=== PATIENT | female | born 1995 | race Caucasian/White ===

== ENCOUNTER 2016-07-08 01:08 | Inpatient (IN) | payer OTHER ==
[~2016-07-08] VITALS: Ht 160 cm; Wt 84.7 kg
[~2016-07-08 01:08] MED LIST: IBUP800T23 PO; MOME17I EACH NARE
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
[2016-07-08 01:48] VITALS: BP 106/67; PULSE 90; RESP 17; TEMP 99.6; O2SAT 100
[2016-07-08 02:11] LABS: AUTOMATED NEUTROPHIL # 6.5 TH/MM3 (1.8-7.7); BASOPHIL # 0.1 TH/MM3 (0-0.2); BASOPHIL % 1.3 % (0.0-2.0); EOSINOPHIL % 0.1 % (0.0-4.0); HEMATOCRIT 40.4 % (35.0-46.0); LYMPH % 21.6 % (9.0-44.0); MEAN CELL VOLUME 85.6 FL (80.0-100.0); MEAN CORPUSCULAR HEMOGLOBIN 29.8 PG (27.0-34.0); MEAN CORPUSCULAR HGB CONC 34.9 % (32.0-36.0); MONO % 6.3 % (0.0-8.0); NEUT % 70.7 % (16.0-70.0); PLATELET COUNT 240 TH/MM3 (150-450); RED BLOOD COUNT 4.72 MIL/MM3 (4.00-5.30); RED CELL DISTRIBUTION WIDTH 13.5 % (11.6-17.2); WHITE BLOOD COUNT 9.2 TH/MM3 (4.0-11.0)
[2016-07-08 02:13] LABS: HEMO FLAGS AUTO DIFF
[2016-07-08 02:32] LABS: ANION GAP 8 MEQ/L (5-15); BICARBONATE 28.7 MEQ/L (21.0-32.0); BLOOD UREA NITROGEN 7 MG/DL (7-18); CHLORIDE 104 MEQ/L (98-107); GLOMERULAR FILTRATION RATE 68 ML/MIN (>89); POTASSIUM 3.6 MEQ/L (3.5-5.1); SODIUM (NA) 141 MEQ/L (136-145)
[2016-07-08 02:41] LABS: AMPHETAMINE, URINE NEG (NEG); BARBITURATES, URINE NEG (NEG); COCAINE, URINE NEG (NEG)
[2016-07-08 02:54] LABS: SCAN/DIFF AUTO DIFF CONFIRMED
--- NOTE | 2016-07-08 11:40 | PD ---
History of Present Illness Chief Complaint: Psychiatric Symptoms Time Seen by Provider: 11:00 Travel History International Travel<30 Days: No Contact w/Intl Traveler<30days: No Known affected area: No Legal Status Legal Status: Gallardo Act Gallardo Act Signed By: Hemalatha Mckeon History of Present Illness: History of Present Illness HPI 20 year-old female with history of adjustment disorder as well as mood disorder who presents to the emergency department under Gallardo ac initiated by ARTUR. The BA report that the patient was approached by a merchant police who saw her walk into a vacant lot and she reported that she wanted to kill herself. She reported to the ED provider that she was walking by the [employer] tracks contemplating lying down in front of a train, however a train never came so she contemplated jumping off the bridge. Patient tells me that she has been feeling increasingly depressed with low energy, low motivation, episodes of crying with sadness, increase feelings of guilt as well as suicidal ideation. " I have been suicidal for many years but have never felt so close to actually doing it ". My plan is to do whatever it is that would lead me to ". She does has a reported history of depression but has been off her medication since 2016 when she stopped going to [facility] and past medications include Zoloft, Lexapro as well as Trazodone which she feels did not help her" EMR is reviewed. She has one previous admission to [facility] at age 15 years for suicidal ideation w self inflicted superficial lacerations. She denies any substance use and current toxicology is negative. Patient is alert, oriented female who is dressed in hospital gown with appropriate hygiene. She has healed scars in upper arms from self inflicted lacerations. She also has some superficial; scars on her neck as well. Her affect is restricted, poor eye contact , low tone of speech. She denies any hallucinatory process. No joan. Mood is depressed with reported anhedonia and low motivation. denies hallucinations Patient is not paranoid although she is suspicious and guarded and shares that she quit her job in June because she believes she was being stalked by a stranger. Her sleeping is altered as she sleeps during the day because she finds it easier for her to do so. At the time of this evaluation she is unable to contract for safety and expresses that she wants to once again receive treatment for her psychiatric symptoms. PFSH Past Medical History ADHD: No Asthma: Yes Depression: Yes Cancer: No Cardiovascular Problems: No Diabetes: Yes (PT IS UNSURE) Patient Takes Glucophage: No Diminished Hearing: No Gastrointestinal Disorders: Yes (Constipation) Psychiatric: No Immunizations Current: Yes Migraines: No Seizures: No Thyroid Disease: No Ulcer: No PNEUMOCCOCAL Vaccine (Year): 2010 ?: Not LMP: 06/2016 : 0 Past Surgical History Surgical History: No Previous Surgery Other Surgery: No Psychiatric History Psychiatric History Hx Psychiatric Treatment: HX: [facility], [facility]. Last seen in [facility] in 2015. History of Inpatient Treatment: Yes ([facility] when she was 15 years old. ) Guns or firearms in home: No Social History Single female. Living with friends. Recently quit her job. Has no contact with her mother with other family members. Hx Alcohol Use: Yes (OCC) Hx Tobacco Use: No Hx Substance Use: No (PT DENIES) Hx of Substance Use Treatment: No Family Psychiatric History Mother with history of depression. Allergies-Medications (Allergen,Severity, Reaction): Coded Allergies: Cat Dander (Verified Allergy, Severe, 07/08/16) Dust (Verified Allergy, Severe, 07/08/16) Ibuprofen (Verified Allergy, Severe, Shortness of Breath, 07/08/16) Soybean (Verified Allergy, Severe, 07/08/16) Uncoded Allergies: fresh fruit (Adverse Reaction, Severe, 01/22/11) Reported Meds & Prescriptions Reported Meds & Active Scripts Active No Active Prescriptions or Reported Medications Review of Systems Except as stated in HPI: all other systems reviewed are Neg Psychiatric: COMPLAINS OF: Depression, Suicidal Ideation Exam Alert: Yes [place]: Person (ox4) Mood: Depressed Affect: Restricted Speech: Clear, Logical Eye Contact: Other (decreased) Memory Intact: Comment (not impaired) Hallucinations: Other (negative) Delusions: No Delusion Type: Other (suspicious) Suicidal: Plan (to lay in train tracks or jump from a building), Ideation Homicidal: Ideation (deneis any) Insight/Judgement fair. not impaired MDM Medical Decision Making Medical Record Reviewed: Yes Assessment/Plan 20 year old female under a BA for suicidal ideation. She has a history of treatment with various antidepressants as well as one previous admission to psychiatry at age 15 years. At present she stopped her psychiatric treatment in 2016 and is reporting increase in symptoms of depression as well as increase in suicidal ideation. At this time she meets criteria for inpatient psychiatric treatment in order to maintain safety, initiate medication and decrease current symptomatology. Orders Complete Blood Count With Diff (07/08/16 01:39) Basic Metabolic Panel (Bmp) (07/08/16 01:39) Ed Urine Pregnancytest Poc (07/08/16 01:39) Psych Screen (07/08/16 01:39) Drug Screen, Random Urine (07/08/16 01:39) Alcohol (Ethanol) (07/08/16 01:39) Diet Regular Basic (07/08/16 Breakfast) Results Vital Signs Date Time Temp Pulse Resp B/P Pulse Ox O2 Delivery O2 Flow Rate FiO2 07/08/16 01:48 99.6 90 17 106/67 100 Laboratory Tests Test 07/08/16 07/08/16 01:56 02:00 White Blood Count 9.2 Red Blood Count 4.72 Hemoglobin 14.1 Hematocrit 40.4 Mean Corpuscular Volume 85.6 Mean Corpuscular Hemoglobin 29.8 Mean Corpuscular Hemoglobin 34.9 Concent Red Cell Distribution Width 13.5 Platelet Count 240 Mean Platelet Volume 7.4 Neutrophils (%) (Auto) 70.7 Lymphocytes (%) (Auto) 21.6 Monocytes (%) (Auto) 6.3 Eosinophils (%) (Auto) 0.1 Basophils (%) (Auto) 1.3 Neutrophils # (Auto) 6.5 Lymphocytes # (Auto) 2.0 Monocytes # (Auto) 0.6 Eosinophils # (Auto) 0.0 Basophils # (Auto) 0.1 CBC Comment AUTO DIFF Differential Comment AUTO DIFF CONFIRMED Sodium Level 141 Potassium Level 3.6 Chloride Level 104 Carbon Dioxide Level 28.7 Anion Gap 8 Blood Urea Nitrogen 7 Creatinine 1.04 Estimat Glomerular Filtration 68 Rate Random Glucose 100 Calcium Level 9.4 Ethyl Alcohol Level LESS THAN 3 Urine Opiates Screen NEG Urine Barbiturates Screen NEG Urine Amphetamines Screen NEG Urine Benzodiazepines Screen NEG Urine Cocaine Screen NEG Urine Cannabinoids Screen NEG Diagnosis Primary Impression: Suicidal thoughts Additional Impressions: Depression Adjustment disorder Admitting Information Admitting Physician Requests: Admit (Dr. Ivory) Prescriptions No Active Prescriptions or Reported Meds Condition: Stable Problem Qualifiers Additional Impressions: Depression Qualified Code: F32.9 - Depression, unspecified depression type Adjustment disorder Qualified Code: F43.21 - Adjustment disorder with depressed mood Shaista Morales July 08, 2016 11:40
[2016-07-08 12:30] VITALS: BP 113/56; PULSE 68; RESP 16; TEMP 98.4; O2SAT 98
[2016-07-08] MEDS ORDERED: MAGNESIUM HYDROXIDE SUSP 30 ML CUP PO PRN (14:30)
[2016-07-08] MEDS ORDERED: ALUMINUM/MAGNESIUM/SIMETH 30 ML CUP PO PRN (14:30)
[2016-07-08] MEDS ORDERED: ACETAMINOPHEN 325 MG TAB PO PRN (14:30)
[2016-07-08 15:51] VITALS: BP 124/78; PULSE 70; RESP 16; TEMP 97.7; O2SAT 98
[2016-07-08 16:36] VITALS: BP 124/78
[2016-07-08 16:45] VITALS: BP 109/65; PULSE 61; RESP 16; TEMP 97.7; O2SAT 99
[2016-07-09 05:25] VITALS: BP 101/58; PULSE 60; RESP 16; TEMP 98; O2SAT 98
[2016-07-09 09:46] LABS: ANION GAP 9 MEQ/L (5-15); BICARBONATE 26.2 MEQ/L (21.0-32.0); BLOOD UREA NITROGEN 12 MG/DL (7-18); CHLORIDE 105 MEQ/L (98-107); GLOMERULAR FILTRATION RATE 94 ML/MIN (>89); HDL CHOLESTEROL 53.6 MG/DL (40.0-60.0); LDL CHOLESTEROL 90 MG/DL (0-99); SODIUM (NA) 140 MEQ/L (136-145)
[2016-07-09] MEDS ORDERED: PNEUMOCOCCAL POLYVALENT INJ 25 MCG/0.5 ML SYR IM ONE (10:00)
[2016-07-09 13:22] LABS: HEMOGLOBIN A1a 1.1 %; HEMOGLOBIN A1b 0.8 %; HEMOGLOBIN Ao 85.4 %; HEMOGLOBIN F 1.4 %; HEMOGLOBIN LA1C 1.8 %; HEMOGLOBIN P3 3.4 %
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
[2016-07-09] MEDS ORDERED: LORazepam 0.5 MG TAB PO PRN (15:00)
[2016-07-09] MEDS ORDERED: diphenhydrAMINE HCL 50 MG CAP PO PRN (15:00)
[2016-07-09] MEDS ORDERED: LORazepam 2 MG/ML VIAL IM PRN (15:00)
[2016-07-09 16:47] LABS: FREE T4 1.38 NG/DL (0.76-1.46)
[2016-07-09 17:55] VITALS: BP 115/62; PULSE 62; RESP 18; TEMP 98.2; O2SAT 100
[2016-07-10 05:43] VITALS: BP 102/55; PULSE 57; RESP 16; TEMP 97; O2SAT 98
[2016-07-10] MEDS: VENLAFAXINE HCL XR 37.5 MG CAP PO SCH (10:16)
--- NOTE | 2016-07-10 13:44 | HHI.PYPN ---
Subjective Remarks Patient was seen and case discussed with nursing. Patient is very shy and anxious for the interview. Spends a lot of time in her room per nursing. Patient was hoping for more counseling during her stay here and I will pass this along to she can get involved with the group therapy. Mood remains depressed but she is not hopeless or helpless. Denies suicidal ideation intent or plan. However, she says she does not feel safe outside the hospital Objective Alert: Yes [place]: Person (ox4), Place Mood: Anxious, Depressed Affect: Restricted Memory Intact: Comment (not impaired) Hallucinations: Other (negative) Delusions: No Delusion Type: Other (remains suspicious) Suicidal: Plan (no plan today but does not feel safe outside the hospital), Ideation Homicidal: Ideation (deneis any) Insight/Judgment Fair Vitals/IOs Vital Signs Date Time Temp Pulse Resp B/P Pulse Ox O2 Delivery O2 Flow Rate FiO2 07/10/16 05:43 97.0 57 16 102/55 98 07/08/16 12:30 Room Air Assessment & Plan Problem List: (1) Major depressive disorder ICD Code: F32.9 Assessment & Plan Continue current treatment plan Justification for Cont. Inpt. Patient will decompensate in a less restrictive setting Request HC Surrog/Guard Advoc?: No Problem Qualifiers (1) Major depressive disorder: Qualified Code: F33.2 - Severe episode of recurrent major depressive disorder, without psychotic features Vasyl Haley DO July 10, 2016 13:44
[2016-07-10 21:30] VITALS: BP 127/74; PULSE 67; RESP 17; TEMP 98.1; O2SAT 98
[2016-07-11 06:01] VITALS: BP 85/61; PULSE 70; RESP 15; TEMP 96.5; O2SAT 95
[2016-07-11] MEDS: VENLAFAXINE HCL XR 37.5 MG CAP PO SCH (08:51)
--- NOTE | 2016-07-11 16:38 | HHI.PYPN ---
Subjective Remarks Started on Effexor. Tolerates medication well. Remains depressed. Review of Systems Except as stated in HPI: all other systems reviewed are Neg Objective Alert: Yes [place]: Person (ox4), Place Mood: Anxious, Depressed Affect: Restricted Memory Intact: Comment (not impaired) Hallucinations: Other (negative) Delusions: No Delusion Type: Other (remains suspicious) Suicidal: Plan (no plan today but does not feel safe outside the hospital), Ideation Homicidal: Ideation (deneis any) Insight/Judgment Impaired Vitals/IOs Vital Signs Date Time Temp Pulse Resp B/P Pulse Ox O2 Delivery O2 Flow Rate FiO2 07/11/16 06:01 96.5 70 15 85/61 95 07/08/16 12:30 Room Air Assessment & Plan Problem List: (1) Major depressive disorder ICD Code: F32.9 Assessment & Plan Estimated LOS: 3 days continue to titrate Effexor as tolerated. Justification for Cont. Inpt. Likely to decompensate at lower level of care. Request HC Surrog/Guard Advoc?: No Problem Qualifiers (1) Major depressive disorder: Qualified Code: F33.2 - Severe episode of recurrent major depressive disorder, without psychotic features Jered Moreno MD July 11, 2016 16:38
[2016-07-11 20:00] VITALS: BP 111/60; PULSE 67; RESP 18; TEMP 98; O2SAT 100
[2016-07-12 05:34] VITALS: BP 98/59; PULSE 60; RESP 16; TEMP 97.9
[2016-07-12] MEDS: VENLAFAXINE HCL XR 37.5 MG CAP PO SCH (08:39)
--- NOTE | 2016-07-12 10:46 | HHI.PYPN ---
Subjective Remarks Continues to appear anxious and depressed. Discussed possible medication changes but patient does not want this physician to change medicines at this time. Patient to participate in individual and group therapies. Review of Systems Except as stated in HPI: all other systems reviewed are Neg Objective Alert: Yes [place]: Person (ox4), Place Mood: Anxious, Depressed Affect: Restricted Memory Intact: Comment (not impaired) Hallucinations: Other (negative) Delusions: No Delusion Type: Other (remains suspicious) Suicidal: Plan (no plan today but does not feel safe outside the hospital), Ideation Homicidal: Ideation (deneis any) Insight/Judgment Remains impaired. Vitals/IOs Vital Signs Date Time Temp Pulse Resp B/P Pulse Ox O2 Delivery O2 Flow Rate FiO2 07/12/16 05:34 97.9 60 16 98/59 07/11/16 20:00 100 07/08/16 12:30 Room Air Assessment & Plan Problem List: (1) Major depressive disorder ICD Code: F32.9 Assessment & Plan Estimated LOS: 3 days will continue to monitor for improvement based on medication and therapies. Justification for Cont. Inpt. Medication needs more time to be effective. Request HC Surrog/Guard Advoc?: No Problem Qualifiers (1) Major depressive disorder: Qualified Code: F33.2 - Severe episode of recurrent major depressive disorder, without psychotic features Jered Moreno MD July 12, 2016 10:46
[2016-07-13 05:59] VITALS: BP 92/52; PULSE 62; RESP 16; TEMP 98.7
[2016-07-13] MEDS: VENLAFAXINE HCL XR 37.5 MG CAP PO SCH (09:02)
[2016-07-13 17:19] VITALS: BP 116/74; PULSE 65; RESP 16; TEMP 97.6; O2SAT 100
[2016-07-14 06:40] VITALS: BP 98/58; PULSE 55; RESP 16; TEMP 97.9
[2016-07-14] MEDS: buPROPion HCL 150 MG SUSTAINED RELEASE TAB PO SCH (08:25)
--- NOTE | 2016-07-14 13:58 | HHI.PYPN ---
Subjective Remarks Continues to request medications at an alarming rate. Does not appear to be as paranoid as she once was. Anticipate discharge shortly but will continue to adjust medicines and meantime. Review of Systems Except as stated in HPI: all other systems reviewed are Neg Objective Alert: Yes [place]: Person (ox4), Place Mood: Anxious, Depressed Affect: Restricted Memory Intact: Comment (not impaired) Hallucinations: Other (negative) Delusions: No Delusion Type: Other (remains suspicious) Suicidal: Plan (no plan today but does not feel safe outside the hospital), Ideation Homicidal: Ideation (deneis any) Insight/Judgment Impaired Vitals/IOs Vital Signs Date Time Temp Pulse Resp B/P Pulse Ox O2 Delivery O2 Flow Rate FiO2 07/14/16 06:40 97.9 55 16 98/58 07/13/16 17:19 100 Assessment & Plan Problem List: (1) Major depressive disorder ICD Code: F32.9 Assessment & Plan Estimated LOS: 1-2 days continue to treat depression with medication. Justification for Cont. Inpt. Awaiting further stability on antidepressants. Request HC Surrog/Guard Advoc?: No Problem Qualifiers (1) Major depressive disorder: Qualified Code: F33.2 - Severe episode of recurrent major depressive disorder, without psychotic features Jered Moreno MD July 14, 2016 13:58
[2016-07-14 20:04] VITALS: BP 89/54; PULSE 82; RESP 17; TEMP 96.9; O2SAT 97
[2016-07-15 05:29] VITALS: BP 101/65; PULSE 56; RESP 18; TEMP 97.3; O2SAT 98
[2016-07-15] MEDS: buPROPion HCL 150 MG SUSTAINED RELEASE TAB PO SCH (08:12)
--- NOTE | 2016-07-15 14:07 | HHI.PYPN ---
Subjective Remarks Patient seen and examined with nurse, Christina, in coverage for Dr. Moreno. Chart reviewed. Case d/w RN. On my examination today, patient feels like the Wellbutrin helped "my brain chill out. I could focus," and this was reportedly after her first dose. She tells me she read in the patient information that this agent is used for ADHD and so has inferred, "I guess I must have ADHD." Affect is upbeat. Wants to remain in the hospital because she enjoys the groups and socialization. Denies SI/HI. Complains of some transient myalgias from the Wellbutrin yesterday, but these are reportedly resolved now, and she has no physical complaints. Discussed options for medication management at this point, patient prefers no change. Review of Systems Except as stated in HPI: all other systems reviewed are Neg Objective Alert: Yes [place]: Person, Place, Date, Situation Mood: Anxious Affect: Euthymic Memory Intact: Comment (Intact on clinical exam) Hallucinations: Other (No AVH) Delusions: No Delusion Type: Other (No delusions) Suicidal: Ideation (Denies SI) Homicidal: Ideation (Denies HI) Insight/Judgment Fair Remarks No abnormal motor movements noted. TP linear. Speech wnl for rate, tone, volume. Grooming and hygiene good. Labs Labs reviewed. Vitals/IOs Vital Signs Date Time Temp Pulse Resp B/P Pulse Ox O2 Delivery O2 Flow Rate FiO2 07/15/16 05:29 97.3 56 18 101/65 98 Assessment & Plan Problem List: (1) Major depressive disorder ICD Code: F32.9 Assessment & Plan Continue Wellbutrin SR 150mg daily. Continue other medications and care as ordered. Justification for Cont. Inpt. Risk for decompensation in less restrictive setting. Discharge Planning Per Dr. Moreno. Request HC Surrog/Guard Advoc?: No Problem Qualifiers (1) Major depressive disorder: Qualified Code: F33.2 - Severe episode of recurrent major depressive disorder, without psychotic features Price Hsieh MD July 15, 2016 14:07
[2016-07-15 18:00] VITALS: BP 107/70; PULSE 76; RESP 18; TEMP 97.5; O2SAT 100
[2016-07-16 05:27] VITALS: BP 102/60; PULSE 62; RESP 16; TEMP 97.6; O2SAT 97
[2016-07-16] MEDS: buPROPion HCL 150 MG SUSTAINED RELEASE TAB PO SCH (08:27)
[2016-07-16] MEDS ORDERED: BUPR150CR PO (11:07)
--- NOTE | 2016-07-16 11:07 | HHI.DS ---
Psychiatry Discharge Summary Inpatient Psychiatric care?: Yes Advance Directive: No Reason Not Provided: Pt declined at this time. Mental Health AdvanceDirective: No Health Care Proxy: No Admission Admission Date July 08, 2016 at 14:25 Admission Diagnosis: (1) Major depressive disorder ICD Code: F32.9 Brief History Ms. Reyes is a 20-year-old female with a reported history of major depression who presents under a Gallardo act for suicidal ideation. Patient was evaluated by psychiatric nurse practitioner who recommended admission to the inpatient psychiatric unit. Reviewing the electronic medical record, I note the patient was admitted to the child psychiatric unit in 2010 and was started on Zoloft at that time for mood. Patient seen and examined with nurse. Chart reviewed. Case discussed with nursing staff. On my examination today, the patient reports that she has struggled with depression since age 12. She says that she has been feeling more depressed lately over the last several weeks. Her sleep has grown more fragmented. Appetite is fair. Most problematic are poor appetite and lack motivation. She has recently had onset of suicidal ideation and was apparently contemplating various plans. She denies any urge to hurt herself on the inpatient psychiatric unit. No homicidal ideation. No hypomanic or manic symptoms. Denies audiovisual hallucinations although she does occasionally hear music in her head. No evident delusional beliefs. Remainder of the psychiatric ROS is negative. Past psychiatric history: Patient reports a history of major depression. She is not currently under the care of an outpatient psychiatrist. She is taking no psychotropics. She reports only the one prior admission to the child psychiatric unit. She denies any prior history of suicide attempts. She reports that the Zoloft that she was started on initially helped to lift her mood but then seemed to worsen it and made her feel more angry. Lexapro made her brain "hyperactive." Remeron was too sedating. Family history: Patient reports that her mother struggles with depression. Her maternal aunt struggles with bipolar disorder. Chemical dependency history: Patient denies any history of abuse of drugs or alcohol. Social history: Patient reports that she is staying with friends. She has been out of work for the last month or so. She has a GED. She is single with no children. Denies any history but does report a history of domestic battery charges. She is spiritual but not buddhist. Denies any access to guns or firearms. Denies any history of abuse or neglect. Tobacco Use In Past 30 Days: No Tobacco Past 30 Days Alcohol Use: Never Hospital Course Patient was admitted to a locked, inpatient psychiatric unit. Appropriate precautions were in place throughout patient's hospital stay. Patient was seen and examined on the unit by psychiatry and also visited by counselor. Medications were adjusted. Patient had improvement in her presenting psychiatric symptomatology. There was no evidence of any suicidality or homicidality on the inpatient unit. Patient remained in generally good behavioral control and was medication compliant. Charting indicates that the patient has been sleeping and eating well prior to discharge. On the day of discharge: Patient seen and examined with nurse. Chart reviewed. Case discussed with nursing staff who reports that the patient has been no behavioral problem overnight. On my examination today, the patient is requesting discharge from the inpatient psychiatric unit. She feels that her mood is improved versus admission. No depressive or hypomanic/manic symptoms at this time. She feels like the Wellbutrin is helping her focus and think clearly. No audiovisual hallucinations. No evident delusional beliefs. She denies any suicidal or homicidal ideation, intent or plan. She is future oriented. She is agreeable to following up with psychiatry on an outpatient basis. She denies side effects from medications. She has no physical complaints. Weighing the acute, chronic, and protective factors and based on the available evidence, I vehicle controls engineer to a reasonable degree of medical certainty that the patient is at low imminent risk of harm to self or others from a mental illness as defined under the Gallardo act, and her level of function is adequate for outpatient care. Consequently, the patient does not meet criteria for involuntary psychiatric hospitalization at this time. Given that she does not meet criteria for involuntary psychiatric hospitalization and given that she is requesting discharge from the inpatient psychiatric unit today, I must arrange for her discharge today with psychiatric follow-up as arranged by counselor. Case discussed with counselor. Patient is also to follow-up with primary care. I have counseled the patient to follow-up psychiatrically on an outpatient basis. I have counseled her not to combine psychotropics with any recreational drugs or alcohol. I have counseled the patient regarding warning signs for need to return to the psychiatric emergency room as part of the general safety plan. Results Blood Pressure 102 / 60 Vital Signs Date Time Temp Pulse Resp B/P Pulse Ox O2 Delivery O2 Flow Rate FiO2 07/16/16 05:27 97.6 62 16 102/60 97 Item Value Date Time White Blood Count 9.2 TH/MM3 07/08/16 0156 Hemoglobin 14.1 GM/DL 07/08/16 0156 Platelet Count 240 TH/MM3 07/08/16 0156 Sodium Level 140 MEQ/L 07/09/16 0848 Potassium Level 4.0 MEQ/L 07/09/16 0848 Chloride Level 105 MEQ/L 07/09/16 0848 Carbon Dioxide Level 26.2 MEQ/L 07/09/16 0848 Blood Urea Nitrogen 12 MG/DL 07/09/16 0848 Creatinine 0.78 MG/DL 07/09/16 0848 Random Glucose 90 MG/DL 07/09/16 0848 Hemoglobin A1c 5.5 % 07/09/16 0848 Free Thyroxine 1.38 NG/DL 07/09/16 0848 Thyroid Stimulating Hormone 3rd Gen 1.140 uIU/ML 07/09/16 0848 Urine Opiates Screen NEG 07/08/16 0200 Urine Barbiturates Screen NEG 07/08/16 0200 Urine Amphetamines Screen NEG 07/08/16 0200 Urine Benzodiazepines Screen NEG 07/08/16 0200 Urine Cocaine Screen NEG 07/08/16 0200 Urine Cannabinoids Screen NEG 07/08/16 0200 Ethyl Alcohol Level LESS THAN 3 MG/DL 07/08/16 0156 Summary of Procedures None done Imaging None done Pending results at discharge: No Medications # of Antipsychotic meds at D/C: 0 Approp Antipsych med options 1 - Minimum of three failed multiple trials of monotherapy. 2 - Documented plan to taper to monotherapy due to previous use of multiple meds OR cross-taper in progress at D/C. 3 - Documentation of augmentation of Clozapine. 4 - Justification other than those listed in allowable values 1-3, document here : Discharge Discharge Date: July 16, 2016 Discharge Diagnosis: (1) Major depressive disorder, recurrent, in partial remission Diagnosis: Principal ICD Code: F33.41 GAF on discharge is 60. Mental Status Exam at Disch Patient is casually dressed. She is well groomed. She is awake and alert and oriented 3. No abnormal motor movements noted. Speech is within normal limits for rate, tone and volume. Language and fund of knowledge average. Mood is improved versus admission and affect is full and reactive. Thought process linear. No loosening of associations. No evident delusions. No audiovisual hallucinations and the patient does not appear internally stimulated. Denies suicidal or homicidal ideation, intent or plan. Insight and judgment are fair. Pt Condition on Discharge: Stable Discharge Disposition: Discharge Home Discharge Instructions Diet Instructions: As Tolerated, No Restrictions Activities you can perform: Weight Bearing as Yesenia Scheduled Appointment: Sven Lechuga Appointment Date: July 21, 2016 Appointment Time: 7:30am New Medications: Bupropion HCl ER 12 HR (Wellbutrin SR 12 HR) 150 Mg Tab 150 MG PO DAILY Mental Health Days 15 Ref 1 TAB Discharge Time <= 30 minutes Discharge/Advance Care Plan Health Problems: (1) Major depressive disorder Goals to promote your health * To prevent worsening of your condition and complications * To maintain your health at the optimal level Directions to meet your goals Take your medications as prescribed Follow your dietary instruction Follow activity as directed Keep your appointments as scheduled Take your immunizations and boosters as scheduled If your symptoms worsen call your PCP, if no PCP go to Urgent Care Center or Emergency Room For 26/09 questions related to your inpatient stay or results of tests pending at discharge, please contact Dr. Price Hsieh at Smoking is Dangerous to Your Health. Avoid second hand smoking Problem Qualifiers (1) Major depressive disorder: Qualified Code: F33.2 - Severe episode of recurrent major depressive disorder, without psychotic features Price Hsieh MD July 16, 2016 11:07
--- NOTE | 2016-07-25 10:10 | HHI.PYPN ---
Subjective Remarks This is the psychiatric progress note for July 13, 2016. Patient remains depressed, with decreased range of affect, social withdrawal, decreased self- esteem, taking poor care of herself (poor hygiene), no motivation and reported suicidal thinking. She is being compliant with antidepressant medication but it has not worked as of this time period. Review of Systems ROS Limitations: Poor Historian Objective Alert: Yes [place]: Person, Place, Date, Situation Mood: Anxious, Depressed Affect: Restricted Memory Intact: Comment (Intact on clinical exam) Hallucinations: Other (No AVH) Delusions: No Delusion Type: Other (No delusions) Suicidal: Ideation (Denies SI) Homicidal: Ideation (Denies HI) Insight/Judgment Impaired Assessment & Plan Problem List: (1) Major depressive disorder ICD Code: F32.9 Assessment & Plan Estimated LOS: 5 days will give Wellbutrin time to work on the patient's depression and low energy. Discussed low self-esteem with patient. Encouraged her to do more to care for herself. Justification for Cont. Inpt. Likely to decompensate at lower level of care. Request HC Surrog/Guard Advoc?: No Problem Qualifiers (1) Major depressive disorder: Qualified Code: F33.2 - Severe episode of recurrent major depressive disorder, without psychotic features Jered Moreno MD July 25, 2016 10:09
== END 2016-07-16 12:34 | disposition home or self-care (01) | DRG 885 ==
LOC: NEPD 01:08 → NEDA 14:25 → H260 16:30
PROVIDERS: ADMIT Psychiatry & Neurology Psychiatry; ATTEND Psychiatry & Neurology Psychiatry
DX: F33.2 Major depressive disorder, recurrent severe without psychotic features (principal); R45.851 Suicidal ideations; J45.909 Unspecified asthma, uncomplicated; K59.00 Constipation, unspecified
CPT/HCPCS: 80048; 80061; 80307; 83036; 84439; 84443; 84703; 85025; 99284